=== PATIENT | female | born 1995 | race Caucasian/White ===

== ENCOUNTER 2021-01-27 00:11 | Inpatient (IN) ==
[2021-01-27] MEDS ORDERED: OXYTOCIN 30 UNITS/500 ML BAG IV PRN ×3 (00:41→17:11)
--- NOTE | 2021-01-27 00:56 | History & Physical Report ---
Date of Service January 27, 2021 Assessment & Plan (1) Spontaneous rupture of amniotic membranes: 25-year-old -0-0-1 at 37 weeks and 5 days of gestation presented to labor and delivery with spontaneous rupture of membranes at term. Vital signs stable, except slight elevated blood pressures, patient is asymptomatic and states she is nervous to be in the hospital. heart rate reassuring No regular contractions but cervix favorable Discussed induction of labor with Pitocin to decrease latency and risk of infection versus expectant management patient desires expectant management for 2 hours and then increased start with Pitocin. Epidural for pain management patient desires Continue to monitor History of Present Illness Primary Care Provider: Shahzad Jenkins MD Patient is a 25-year-old -0-0-1 at 37 weeks and 5 days of gestation who presented to labor and delivery with spontaneous rupture of membranes at 11:10 PM last night on January 26 it was a big gush and then trickling afterwards it has been clear patient denies contractions, vaginal bleeding, abdominal pain, fever chills, headaches, change her vision, nausea or vomiting. Patient reports good movements. Her has been uncomplicated. She was diagnosed with BV yesterday and started on metronidazole p.o. she took her first dose yesterday evening at 6:30 PM. Her GBS is negative. She has been having growth ultrasounds every 4 weeks last one was a week ago and baby was weighing 2700 g. And vertex. Allergies Allergy/AdvReac Type Severity Reaction Status Date / Time No Known Allergies Allergy Unknown Verified 12/28/20 08:32 Home Medications Medication Instructions Recorded Confirmed Type metronidazole 500 mg PO BID 01/27/21 01/27/21 History Patient History Medical History (Updated 01/27/21 @ 00:54 by Markel Higuera MD) uterine contractions in third trimester, antepartum Vagina bleeding Surgical History No pertinent past surgical history Family History Other No pertinent family history Social History Smoking Status: Never smoker Second Hand Exposure: No; Hx Alcohol Use: No Hx Substance Use: No Preferred Language: Ecuadorean Communication Ability: Effective Document Advisor Required: No Beliefs That Will Affect Care: None marital status: Current Living Situation: Spouse Other Information That Helps Us Care for You: No Feels Safe at Home: Yes Safety Concerns: Feels Safe At This Time Assistive Devices: None OB History FT in 2016 [employer] History No h/o STD's, no HSV/ Chlam/ GC Review of Systems All systems reviewed & are unremarkable except as noted in HPI & below Physical Exam Constitutional: WD/WN, vitals as above well developed and well nourished Gastrointestinal (Abdomen): normal bowel sounds, soft, nontender, no hepatosplenomegaly (GRAVID) Genitourinary: no vaginal lesions, no adnexal mass normal external appearance OB Exam Abdomen: + vertex Manual OB Exam: + cervical dilation 3 cm, + cervical effacement 60% and + station high (-3, Grossly ruptured) OB Exam Monitor Tracing: + external uterine monitor used (no ctxs) and + category I Results & Data ([facility]) Vital Signs (Past 12 Hours) Vital Signs Temp Pulse Resp BP 01/27/21 00:38 103 H 152/96 H 01/27/21 00:28 37.0 C 107 H 18 152/91 H
[2021-01-27 01:15] LABS: Hematocrit (blood only) 35.5 % (37-47); Hemoglobin 12.1 g/dL (12.0-16.0); Mean Corpuscular Hemoglobin 30.8 pg (25-34); Mean Corpuscular Hgb Conc 34.1 g/dL (32-36); Mean Corpuscular Volume 90.3 fL (80-100); Mean Platelet Volume 11.8 fL (7.4-10.4); Platelet Count 143 K/uL (130-400); RDW Coefficient of Variation 12.8 % (11.5-14.5); RDW Standard Deviation 41.9 fL (36.4-46.3); Red Blood Count 3.93 M/uL (4.2-5.4); White Blood Count 12.93 K/uL (4.8-10.8)
[2021-01-27 01:27] LABS: Appearance Urine Clear (Clear); Bacteria Urine Automated Negative (Negative); Bilirubin Urine Negative (Negative); Blood Urine Negative (Negative); Color Urine Yellow; Epithelial Cell Urine Auto >30 /lpf (0-5); Glucose Urine UA Negative (Negative); Ketones Urine Negative (Negative); Leukocyte Esterase Urine Negative (Negative); Nitrite Urine Negative (Negative); Protein Urine 1+ (Negative); RBC Urine Automated 0-4 /hpf (0-4); Urobilinogen Urine Negative (Negative)
[2021-01-27 01:31] LABS: Alanine Aminotransferase 14 U/L (12-78); Albumin Level 2.4 gm/dl (3.4-5.0); Aspartate Aminotransferase 12 U/L (15-37); BUN Creatinine Ratio 14.6 (10-20); Bilirubin Direct < 0.1 mg/dl (0-0.2); Blood Urea Nitrogen 9 mg/dl (7-18); Carbon Dioxide 21 mmol/L (21-32); Chloride 109 mmol/L (98-107); Creatinine Clr Calc Pharmacy 144.4 ml/min; Est GFR (African American) 145.3 ml/min; Est GFR (Non-African American) 125.3 ml/min; Glucose 134 mg/dl (70-99); Potassium 3.7 mmol/L (3.5-5.1); Sodium 139 mmol/L (136-145)
[2021-01-27 01:34] LABS: Albumin Globulin Ratio 0.7 (0.9-2); Alkaline Phosphatase 172 U/L (45-117); Bilirubin,Total 0.4 mg/dl (0.2-1); Globulin 3.6 gm/dl (2.5-4.0)
[2021-01-27] MEDS: LACTATED RINGER'S 1,000 ML IV PRN ×3 (03:15→12:47)
[2021-01-27] MEDS ORDERED: SODIUM CHLORIDE 0.9% INJ 10 ML VIAL ONE (05:36)
[2021-01-27] MEDS ORDERED: BUPIVACAINE 0.25% 30 ML VIAL ONE (05:36)
[2021-01-27] MEDS ORDERED: ePHEDrine sulfate 50 MG/ML AMP ONE (05:36)
[2021-01-27] MEDS ORDERED: fentaNYL 2MCG/ML ROPIVACAINE 1.25MG/ML 100 ML BAG EPI ONE (05:37)
[2021-01-27] MEDS ORDERED: fentaNYL citrate 100 MCG/2 ML VIAL ONE (05:37)
[2021-01-27] MEDS: metroNIDAZOLE 500 MG TAB PO SCH ×2 (06:23→18:07)
--- NOTE | 2021-01-27 06:28 | Anesthesiology Consultation ---
Date of Service January 27, 2021 Assessment & Plan Chart Review Chart Review: Acceptable Risk for Labor Epidural Consults Requested none History Height/Weight Height: 5 ft Weight: 96.615 kg Allergies Allergy/AdvReac Type Severity Reaction Status Date / Time No Known Allergies Allergy Unknown Verified 12/28/20 08:32 Medications Home Medications Medication Instructions Recorded Confirmed Last Taken metronidazole 500 mg PO BID 01/27/21 01/27/21 01/26/21 19:30 Active Medications Generic Name Dose Route Start Last Admin Trade Name Adonis PRN Reason Stop Dose Admin Lactated Ringer's 1,000 mls @ 150 mls/hr 01/27/21 00:41 01/27/21 06:12 Lr IV 01/29/21 00:40 150 mls/hr .[id number] PRN Administration L&D Protocol Protocol Oxytocin 30 units in 500 mls @ 4 mls/hr 01/27/21 00:56 01/27/21 04:00 Pitocin IV 01/29/21 00:55 0.24 units/hr .Q24H PRN 4 mls/hr Labor Induction/Augmentation Titration Protocol 0.24 UNITS/HR Metronidazole 500 mg 01/27/21 06:00 01/27/21 06:23 Metronidazole 500 Mg Tab PO 02/06/21 05:59 500 mg BID@0600,1800 JESSIKA Administration Past Medical History Medical History uterine contractions in third trimester, antepartum Vagina bleeding Past Family History Family History Other No pertinent family history Past Surgical History Surgical History No pertinent past surgical history Social History Smoking Status: Never smoker Hx Alcohol Use: No Hx Substance Use: No substance use type: does not use Physical Exam Vital Signs Last Vital Signs Temp 37.0 C 01/27/21 05:11 Pulse 103 H 01/27/21 06:23 Resp 18 01/27/21 05:11 BP 133/60 01/27/21 06:23 Pulse Ox 97 01/27/21 06:23 Testing Laboratory Results 01/27/21 00:52 01/27/21 00:52 Urine Color Yellow 01/27/21 00:40 Urine Appearance Clear (Clear) 01/27/21 00:40 Urine pH 6.0 (4.5-7.5) 01/27/21 00:40 Ur Specific [place] 1.020 (1.000-1.030) 01/27/21 00:40 Urine Protein 1+ (Negative) H 01/27/21 00:40 Urine Glucose (UA) Negative (Negative) 01/27/21 00:40 Urine Ketones Negative (Negative) 01/27/21 00:40 Urine Nitrite Negative (Negative) 01/27/21 00:40 Ur Leukocyte Esterase Negative (Negative) 01/27/21 00:40 Urine WBC (Auto) 1-5 /hpf (0-5) 01/27/21 00:40 Urine RBC (Auto) 0-4 /hpf (0-4) 01/27/21 00:40 U Hyaline Cast (Auto) 1-5 /lpf (0-5) 01/27/21 00:40 U Epithel Cells (Auto) >30 /lpf (0-5) H 01/27/21 00:40 Urine Bacteria (Auto) Negative (Negative) 01/27/21 00:40
[2021-01-27] MEDS ORDERED: NALOXONE HCL 0.4 MG/1 ML VIAL/CARP IV PRN (06:31)
[2021-01-27] MEDS ORDERED: NALOXONE HCL 1 MG in SODIUM CHLORIDE 0.9% 1000ML 1,000 ML IV PRN (06:31)
[2021-01-27] MEDS ORDERED: diphenhydrAMINE 50 MG/ML VIAL IV PRN (06:31)
[2021-01-27] MEDS ORDERED: ePHEDrine sulfate 50 MG/ML AMP IV PRN (06:31)
[2021-01-27] MEDS ORDERED: fentaNYL 2MCG/ML ROPIVACAINE 1.25MG/ML 100 ML BAG EPI PRN (06:31)
--- NOTE | 2021-01-27 09:25 | Progress Note ---
Date of Service January 27, 2021 Assessment & Plan Admission and Anticipated Discharge Date Admission Date: January 27, 2021 Subjective Met pt Reviewed PNC FHR; CAT1 Ctx 1-4mins VE by Nurse 3cm @ Bedside Epidural analgesia in place Anticipate VD Results & Data ([facility]) Vital Signs (Past 12 Hours) Vital Signs Temp Pulse Resp BP Pulse Ox 01/27/21 09:18 87 121/66 100 01/27/21 09:13 81 100 01/27/21 09:08 90 100 01/27/21 09:03 91 H 100 01/27/21 09:02 95 H 125/86 01/27/21 08:58 99 H 100 01/27/21 08:53 97 H 99 01/27/21 08:48 81 99 01/27/21 08:47 110 H 121/83 01/27/21 08:43 90 100 01/27/21 08:38 94 H 100 01/27/21 08:34 113 H 134/85 01/27/21 08:33 111 H 99 01/27/21 08:28 92 H 100 01/27/21 08:23 88 100 01/27/21 08:18 91 H 130/86 100 01/27/21 08:13 103 H 100 01/27/21 08:08 82 99 01/27/21 08:04 75 129/76 01/27/21 08:03 75 98 01/27/21 07:58 77 100 01/27/21 07:53 74 99 01/27/21 07:48 76 100 01/27/21 07:47 86 118/77 01/27/21 07:43 73 99 01/27/21 07:38 91 H 99 01/27/21 07:33 80 124/81 99 01/27/21 07:28 96 H 99 01/27/21 07:23 95 H 100 01/27/21 07:18 84 130/87 99 01/27/21 07:13 95 H 99 01/27/21 07:08 84 99 01/27/21 07:03 97 H 99 01/27/21 07:02 91 H 136/92 01/27/21 06:58 104 H 100 01/27/21 06:53 96 H 99 01/27/21 06:48 92 H 135/81 99 01/27/21 06:43 92 H 99 01/27/21 06:38 91 H 99 01/27/21 06:33 92 H 140/82 98 01/27/21 06:29 91 H 128/66 01/27/21 06:28 90 98 01/27/21 06:23 103 H 133/60 97 01/27/21 06:21 100 H 140/74 01/27/21 06:19 104 H 133/79 01/27/21 06:18 94 H 98 01/27/21 06:17 80 138/83 01/27/21 06:14 77 131/73 01/27/21 06:13 100 H 99 01/27/21 06:12 86 168/75 H 01/27/21 06:09 86 135/79 01/27/21 06:08 107 H 100 01/27/21 06:03 107 H 96 01/27/21 06:00 102 H 92 01/27/21 05:58 101 H 100 01/27/21 05:53 90 100 01/27/21 05:48 81 99 01/27/21 05:43 85 100 01/27/21 05:11 37.0 C 84 18 130/84 01/27/21 04:10 84 18 137/87 01/27/21 03:10 37.0 C 90 18 131/82 01/27/21 00:58 94 H 147/73 H 01/27/21 00:48 103 H 144/89 H 01/27/21 00:41 37.0 C 103 H 18 152/96 H 01/27/21 00:38 103 H 152/96 H 01/27/21 00:28 37.0 C 107 H 18 152/91 H
[2021-01-27] MEDS ORDERED: Nursing to Pharmacy Communication SCH (11:00)
[2021-01-27] MEDS ORDERED: METHYLERGONOVINE MALEATE 0.2 MG/ML AMP ONE (13:06)
[2021-01-27] MEDS ORDERED: miSOPROStoL 100 MCG TAB ONE (13:09)
--- NOTE | 2021-01-27 14:38 | Anesthesia Procedure Note ---
Date of Service January 27, 2021 Anesthesia Post Epidural Note Vital Signs Vital Signs: Temp Pulse Resp BP Pulse Ox 37.0 C 78 18 147/70 H 99 01/27/21 11:20 01/27/21 14:33 01/27/21 11:20 01/27/21 14:33 01/27/21 12:58 Notes Mental Status: alert / awake / arousable and participated in evaluation Nausea / Vomiting: adequately controlled Pain: adequately controlled Airway Patency, RR, SpO2: stable & adequate BP & HR: stable & adequate Hydration State: stable & adequate Neuraxial Anesthesia: was administered and sensory block is resolving Anesthetic Complications: no major complications apparent and Pt Satisfied with anesthetic care Epidural: Removed without complications and With tip intact
[2021-01-27] MEDS ORDERED: HYDROCORTISONE ACETATE 25 MG SUPP PR PRN (17:11)
[2021-01-27] MEDS ORDERED: SUPERCREAM 0.870% 15 GM JAR EXT PRN (17:11)
[2021-01-27] MEDS ORDERED: miSOPROStoL 100 MCG TAB PR ONE (17:11)
[2021-01-27] MEDS ORDERED: BENZOCAINE 20% AER SPR 82.5 GM CAN EXT PRN (17:11)
[2021-01-27] MEDS ORDERED: IBUPROFEN 600 MG TAB PO ONE (17:11)
[2021-01-27] MEDS ORDERED: bisacodyL 10 MG SUPP PR PRN (17:11)
[2021-01-27] MEDS ORDERED: METHYLERGONOVINE MALEATE 0.2 MG/ML AMP IM ONE (17:11)
[2021-01-27] MEDS ORDERED: ACETAMINOPHEN 325 MG TAB PO PRN (17:11)
[2021-01-27] MEDS ORDERED: DIPHTHERIA/TETANUS/PERTUSSIS 0.5 ML SYR/VIAL IM ONE (17:11)
[2021-01-27] MEDS: DOCUSATE SODIUM 100 MG CAP PO SCH (20:43)
[2021-01-27] MEDS: IBUPROFEN 600 MG TAB PO PRN (21:27)
[2021-01-28] MEDS: IBUPROFEN 600 MG TAB PO PRN ×2 (03:42→11:51)
[2021-01-28] MEDS: metroNIDAZOLE 500 MG TAB PO SCH (05:49)
[2021-01-28 06:48] LABS: Hematocrit (blood only) 36.2 % (37-47); Hemoglobin 12.3 g/dL (12.0-16.0); Mean Corpuscular Hemoglobin 30.9 pg (25-34); Mean Platelet Volume 12.2 fL (7.4-10.4); Platelet Count 127 K/uL (130-400); Platelet Estimate Normal (Normal); RDW Coefficient of Variation 12.9 % (11.5-14.5); Red Blood Count 3.98 M/uL (4.2-5.4); White Blood Count 13.16 K/uL (4.8-10.8)
[2021-01-28] MEDS ORDERED: PRENATAL VITAMIN 1 TAB PO SCH (08:00)
[2021-01-28] MEDS ORDERED: FERROUS SULFATE 325 MG TAB PO SCH (08:00)
[2021-01-28] MEDS: DOCUSATE SODIUM 100 MG CAP PO SCH (08:19)
--- NOTE | 2021-01-28 08:55 | Obstetrical Progress Note ---
Date of Service January 28, 2021 Assessment & Plan (1) Normal course: PPD #1 pt doing well d/c home with instructions Results & Data ([facility]) Vital Signs (Past 12 Hours) Vital Signs Temp Pulse Resp BP Pulse Ox 01/28/21 03:45 36.8 C 69 18 114/78 01/28/21 00:00 36.8 C 70 18 124/77 98
[2021-01-28] MEDS ORDERED: bisacodyL 5 MG TABEC PO SCH (20:00)
--- NOTE | 2021-01-29 08:21 | Delivery Summary ---
DATE OF OPERATION: 01/27/2021 The patient delivered a live infant male in left occiput anterior presentation. There was loose nuchal cord which was easily reduced. Infant was delivered, placed on mother's abdomen. Delayed cord clamp was performed. Cord blood was obtained. Placenta spontaneously delivered. Inspection of the placenta shows a normal grossly looking placenta. Inspection of the perineum showed no laceration or tears. Rectal exam post-delivery showed good sphincter tone. The infant's Apgars is 7, 10. Estimated blood loss is 450 mL. Mother and baby are doing well in recovery. All instruments were removed from the vagina including sponges and accounted for x2. The patient and baby are doing well in recovery. I attest to the content of the Intraoperative Record and any orders documented therein. Any exception s are noted below.
== END 2021-01-28 13:00 | disposition home or self-care (01) | DRG 807 ==
LOC: OPB 00:11 → 4S1 00:17 → 4S2 17:20